=== PATIENT | male | born 2000 | race Caucasian/White ===

== ENCOUNTER 2019-07-18 21:05 | Emergency (ER) | payer BC ==
[~2019-07-18 21:05] MED LIST: tylenol
--- NOTE | 2019-07-19 01:00 | NUR ---
Called for triage, no answer
--- NOTE | 2019-07-19 01:20 | NUR ---
Called for triage, no answer
--- NOTE | 2019-07-19 01:39 | NUR ---
Called for triage, no answer
== END 2019-07-19 01:39 | disposition left against medical advice (07) ==
LOC: SED 21:05
DX: M79.671 Pain in right foot (principal); Z53.21 Procedure and treatment not carried out due to patient leaving prior to being seen by health care provider